=== PATIENT | female | born 1950 | race Caucasian/White ===

== ENCOUNTER 2019-02-13 04:29 | Inpatient (IN) | payer OTHER, MEDICARE ==
[2019-02-13 05:14] LABS: Absolute Lymphocytes (CBC) 1.5 K/uL (0.7-4.9); Basophils % 0.1 % (0-1.3); Eosinophils % 0.1 % (0-4.4); Hematocrit 45.5 % (36.0-45.0); Lymphocytes % 11.7 % (15.3-44.8); MPV 9.2 fL (7.6-11.3); Monocytes % 1.6 % (3.3-12.3); RBC Red Blood Cell Count 4.68 M/uL (3.86-4.86)
[2019-02-13] MEDS ORDERED: NA CHLORIDE 0.9% 500 ML ONE (05:17)
[2019-02-13 05:31] LABS: Potassium 3.8 mmol/L (3.5-5.1)
--- NOTE | 2019-02-13 06:23 | ER ---
Nurse's Notes [facility] Name: Madison Skinner Age: 68 yrs Sex: Female : 1950 Arrival Date: 02/13/2019 Time: 04:31 Bed 17 Private MD: Ayala Booth C Diagnosis: Multiple fractures of ribs, left side;Pneumothorax, unspecified Presentation: 02/13 04:31 Presenting complaint: EMS states: Patient complaint of left rib pain, left arm pain, lp1 left facial pain after fall in backyard; No LOC; Patient states falling after drinking wine this evening about 2300 and was not able to get for help, laid outside for about 5 hours; Patient states vomiting upon movement to stretcher with EMS. Care prior to arrival: IV initiated. 22 GA, in the right antecubital area, Glucose check: 111. Mechanism of Injury: Fall from standing position. Trauma event details: Injury occurred in the [facility], Injury occurred: at home. Injury occurred: February 12, 2019 Injury occurred at: 23:00. 04:31 Acuity: ELTON 3 lp1 04:31 Method Of Arrival: EMS: [facility] lp1 04:43 Transition of care: patient was not received from another setting of care. Onset of lp1 symptoms was February 12, 2019 at 23:00. Risk Assessment: Do you want to hurt yourself or someone else? Patient reports no desire to harm self or others. Initial Sepsis Screen: Does the patient meet any 2 criteria? No. Patient's initial sepsis screen is negative. Does the patient have a suspected source of infection? No. Patient's initial sepsis screen is negative. Trauma Activation: Physician: ED Physician; Name: ; Notified At: ; Arrived At: Physician: General Surgeon; Name: ; Notified At: ; Arrived At: Physician: Radiology; Name: ; Notified At: ; Arrived At: Physician: Respiratory; Name: ; Notified At: ; Arrived At: Physician: Lab; Name: ; Notified At: ; Arrived At: 04:59 no activation overhead. ak1 Historical: - Allergies: 04:41 No Known Allergies; lp1 - Home Meds: 04:41 levothyroxine 75 mcg tab 1 tab once daily [Active]; ezetimibe oral oral once daily lp1 [Active]; rosuvastatin 20 mg oral tab 1 tab once daily [Active]; hydrochlorothiazide 12.5 mg Oral cap 1 cap once daily [Active]; duloxetine 30 mg oral cpDR 1 cap once daily [Active]; aspirin 81 mg Oral TbEC 1 tab once daily [Active]; - PMHx: 04:41 Hypertension; Hyperlipidemia; Hypothyroidism; lp1 - PSHx: 04:41 Left mastectomy; Appendectomy; Tonsillectomy; lp1 - Social history:: Smoking status: Patient uses tobacco products, smokes one-half pack cigarettes per day. - Immunization history: Last tetanus immunization: unknown. - Ebola Screening: : No symptoms or risks identified at this time. Screenin:42 Abuse screen: Denies threats or abuse. Denies injuries from another. Nutritional lp1 screening: No deficits noted. Tuberculosis screening: No symptoms or risk factors identified. 04:58 Fall Risk IV access (20 points). Gait- Weak (10 pts.). ak1 Primary Survey: 04:52 NO uncontrolled hemorrhage observed. Breathing/Chest: Respiratory pattern: regular, ak1 Respiratory effort: unlabored, shallow, Breath sounds: clear, bilaterally. Circulation: Cardiac rhythm: sinus bradycardia Skin temperature: warm, dry. Disability Alert. Exposure/Environment: All clothing and personal items were removed. Forensic evidence collection is not deemed to be indicated at this time. Items placed in patient belonging bag. There is no evidence of uncontrolled external bleeding. 04:58 Reassessment Breathing/Chest Respiratory pattern Regular Respiratory effort Spontaneous ak1 Unlabored Shallow Breath sounds Clear Circulation Heart rhythm Sinus blanka Color [place] Temperature Warm Dry Disability Alert. 07:00 Reassessment Airway Airway Patent Oxygen Other venturi mask 50% FiO2 Breathing/Chest hb Respiratory pattern Regular Respiratory effort Spontaneous Unlabored Breath sounds Clear Chest inspection Symmetrical Circulation Color [place] Temperature Warm Dry Disability Alert. 08:00 Reassessment Airway Airway Patent Oxygen Other venturi mask 50% FiO2 Breathing/Chest hb Respiratory pattern Regular Respiratory effort Spontaneous Unlabored Breath sounds Clear Chest inspection Symmetrical Circulation Color [place] Temperature Warm Dry Disability Alert. 09:00 Reassessment Airway Airway Patent Oxygen Other VENTI MASK 50% Breathing/Chest hb Respiratory pattern Regular Respiratory effort Spontaneous Unlabored Circulation Color [place] Temperature Warm Dry Disability Alert. 10:00 Reassessment Airway Airway Patent Oxygen Nasal cannula Breathing/Chest Respiratory hb pattern Regular Respiratory effort Spontaneous Unlabored Breath sounds Clear Chest inspection Symmetrical Circulation Color [place] Temperature Warm Dry Disability Alert. Secondary Survey: 04:52 HEENT: Head No injury/deformity Face Other abrasion to left cheek Eyes: No injury or ak1 deformity noted. Ears: clear bilaterally. abrasion to left ear. Nose: clear Throat: is clear with gag reflex present. Gastrointestinal: Abdomen is soft, flat, non-distended, Bowel sounds present in all quadrants. Patient vomited prior to arrival. : No signs and/or symptoms were reported regarding the genitourinary system. Musculoskeletal: Range of motion: intact in all extremities. Injury Description: fall from standing per pt. Assessment: 04:48 General: Appears uncomfortable, slender, Behavior is calm, cooperative, appropriate for ak1 age. Pain: Complains of pain in left rib, left cheek. Neuro: Level of Consciousness is awake, alert, obeys commands, Oriented to person, place, time, situation, Color Expert are equal bilaterally Moves all extremities. Speech is normal, Facial symmetry appears normal. Cardiovascular: No deficits noted. Respiratory: Airway is patent Respiratory effort is even, unlabored, shallow, Breath sounds are clear bilaterally. pain to left rib area s/p fall Onset: The symptoms/episode began/occurred midnight. pt "had too much wine and fell on the patio" pt called her via cell phone from midnight thru 0400 when he woke and called 911. pt denies LOC from fall, pt denies pain to head or neck. . GI: Abdomen is flat, non-distended, Bowel sounds present X 4 quads. : No signs and/or symptoms were reported regarding the genitourinary system. EENT: redness, abrasion to left ear. redness, abrasion to left cheek. . Derm: Bruising that is dark purple, on dorsal aspect of right forearm. Musculoskeletal: No signs and/or symptoms reported regarding the musculoskeletal system. Injury Description: fall from standing per pt. 05:37 Reassessment: pt returned from CT. ak1 05:45 Reassessment: Patient appears in no apparent distress at this time. No changes from ak1 previously documented assessment. Patient and/or family updated on plan of care and expected duration. Pain level reassessed. Patient is alert, oriented x 3, equal unlabored respirations, skin warm/dry/pink. 06:21 Reassessment: Dr. Chinchilla at bedside to inform pt of admission status. RT paged to place ak1 pt on venti mask per ERP. 07:00 General: Appears in no apparent distress. Behavior is calm, cooperative. Pain: Pain hb currently is 8 out of 10 on a pain scale. Neuro: Level of Consciousness is awake, alert, obeys commands, Oriented to person, place, time, situation. EENT: No signs and/or symptoms were reported regarding the EENT system. Cardiovascular: Capillary refill < 3 seconds Patient's skin is warm and dry. Respiratory: Airway is patent Respiratory effort is even, unlabored, Respiratory pattern is regular, symmetrical, Breath sounds are clear bilaterally. GI: No signs and/or symptoms were reported involving the gastrointestinal system. : No signs and/or symptoms were reported regarding the genitourinary system. Derm: Skin is intact, is healthy with good turgor. Musculoskeletal: Reports left sided chest wall pain. 07:09 Reassessment: Surinder Vergara [phone]. hb 07:34 Reassessment: Dr. Casiano at bedside. hb 08:00 Reassessment: Patient appears in no apparent distress at this time. No changes from hb previously documented assessment. Patient and/or family updated on plan of care and expected duration. Pain level reassessed. Patient is alert, oriented x 3, equal unlabored respirations, skin warm/dry/pink. 08:10 Reassessment: Pt transported to CT via stretcher with tech. remains at bedside. hb 08:48 Reassessment: Pt returned from CT. NAD. remains at bedside. hb 09:00 Reassessment: Patient appears in no apparent distress at this time. Patient and/or hb family updated on plan of care and expected duration. Pain level reassessed. Patient is alert, oriented x 3, equal unlabored respirations, skin warm/dry/pink. 10:00 Reassessment: Patient appears in no apparent distress at this time. Patient and/or hb family updated on plan of care and expected duration. Pain level reassessed. Patient is alert, oriented x 3, equal unlabored respirations, skin warm/dry/pink. Vital Signs: 04:38 BP 116 / 59; Pulse 55; Resp 18; Temp 98.2(O); Pulse Ox 93% on R/A; Weight 50.35 kg; lp1 Height 5 ft. 0 in. (152.40 cm); Pain 9/10; 05:44 BP 137 / 59; Pulse 52; Resp 16; Pulse Ox 93% on R/A; ak1 07:00 BP 151 / 59; Pulse 53; Resp 19; Pulse Ox 97% on 50% Venturi mask; Pain 8/10; hb 08:00 BP 146 / 60; Pulse 61; Resp 18; Pulse Ox 96% on 50% Venturi mask; Pain 8/10; hb 09:00 BP 129 / 54; Pulse 63; Resp 17; Pulse Ox 100% on 50% Venturi mask; hb 10:00 BP 126 / 98; Pulse 54; Resp 15; Pulse Ox 100% on 2 lpm NC; Pain 5/10; hb 04:38 Body Mass Index 21.68 (50.35 kg, 152.40 cm) lp1 [place] Coma Score: 04:38 Eye Response: spontaneous(4). Verbal Response: oriented(5). Motor Response: obeys lp1 commands(6). Total: 15. 05:45 Eye Response: spontaneous(4). Verbal Response: oriented(5). Motor Response: obeys ak1 commands(6). Total: 15. Trauma Score (Adult): 04:38 Eye Response: spontaneous(1); Verbal Response: oriented(1); Motor Response: obeys lp1 commands(2); Systolic BP: > 89 mm Hg(4); Respiratory Rate: 10 to 29 per min(4); [place] Score: 15; Trauma Score: 12 05:45 Eye Response: spontaneous(1); Verbal Response: oriented(1); Motor Response: obeys ak1 commands(2); Systolic BP: > 89 mm Hg(4); Respiratory Rate: 10 to 29 per min(4); [place] Score: 15; Trauma Score: 12 07:00 Eye Response: spontaneous(1); Verbal Response: oriented(1); Motor Response: obeys hb commands(2); Systolic BP: > 89 mm Hg(4); Respiratory Rate: 10 to 29 per min(4); [place] Score: 15; Trauma Score: 12 08:00 Eye Response: spontaneous(1); Verbal Response: oriented(1); Motor Response: obeys hb commands(2); Systolic BP: > 89 mm Hg(4); Respiratory Rate: 10 to 29 per min(4); [place] Score: 15; Trauma Score: 12 09:00 Eye Response: spontaneous(1); Verbal Response: oriented(1); Motor Response: obeys hb commands(2); Systolic BP: > 89 mm Hg(4); Respiratory Rate: 10 to 29 per min(4); [place] Score: 15; Trauma Score: 12 10:00 Eye Response: spontaneous(1); Verbal Response: oriented(1); Motor Response: obeys hb commands(2); Systolic BP: > 89 mm Hg(4); Respiratory Rate: 10 to 29 per min(4); [place] Score: 15; Trauma Score: 12 ED Course: 04:31 Patient arrived in ED. ds1 04:35 Thermoregulation: warm blanket given to patient. lp1 04:35 Patient maintains SpO2 saturation greater than 95% on room air. lp1 04:37 Triage completed. lp1 04:42 Arm band placed on right wrist. lp1 04:46 Shar Chinchilla MD is Attending Physician. gs 04:47 Joanne Gorman, GORAN is Primary Nurse. ak1 04:52 Patient has correct armband on for positive identification. Placed in gown. Bed in low ak1 position. Call light in reach. Side rails up X2. Adult w/ patient. Patient maintains SpO2 saturation greater than 95% on room air. Family accompanied patient. Pulse ox on. NIBP on. 04:52 Maintain EMS IV. Dressing intact. Site clean \\T\\ dry. Gauge \\T\\ site: 22g right AC. ak 1 05:16 Ayala Booth MD is Private Physician. ds1 05:45 CT completed. Pt tolerated procedure poorly. Patient moved to CT via stretcher. Patient eh moved back from CT. 05:45 Door closed. Warm blanket given. Pillow given. Head of bed lowered. ak1 05:55 CT Chest Wo Con In Process Unspecified. EDMS 06:22 Kei Casiano MD is Hospitalizing Provider. gs 06:23 No provider procedures requiring assistance completed. ak1 07:25 Attending Physician role handed off by Shar Chinchilla MD kdr 07:25 Oren Gilmore MD is Attending Physician. kdr 07:27 Shar Chinchilla MD is Attending Physician. kdr 08:05 T\\T\\S collected, blood band applied to patient. pt, ethanol drawn by ms and sent to lab. 3 08:09 ETOH Level Sent. hb 08:09 Type And Screen Sent. hb 08:09 PT-INR Sent. hb 09:04 Attending Physician role handed off by Shar Chinchilla MD [facility] 09:04 Oren Gilmore MD is Attending Physician. [facility] 09:21 ABOrh no charge collected by me and sent to lab. 3 Administered Medications: 05:09 Drug: NS 0.9% 500 ml Route: IV; Rate: bolus; Site: right antecubital; ak1 06:00 Follow up: IV Status: Completed infusion; IV Intake: 500ml ak1 08:08 Drug: morphine 4 mg Route: IVP; Site: right antecubital; hb 08:09 Drug: Zofran 4 mg Route: IVP; Site: right antecubital; hb 10:44 CANCELLED (Duplicate Order): [place] 10 mg-325 mg 1 tabs PO once hb 10:49 Drug: [place] 10 mg-325 mg 1 tabs Route: PO; hb Intake: 04:52 PO: 0ml; Total: 0ml. ak1 06:00 IV: 500ml; Total: 500ml. ak1 Outcome: 06:23 Decision to Hospitalize by Provider. gs 11:48 Patient left the ED. hb Signatures: Dispatcher [employer] EDMS Oren Gilmore MD MD [facility] Delroy Agarwal Hyacinth Rowe 1 Amberly Alexander RN RN 1 Joanne Gorman RN RN ak1 Larisa Gibson RN RN Ana Plascencia [facility] Shar Chinchilla MD MD gs Corrections: (The following items were deleted from the chart) 04:44 04:42 Social history: Smoking status: Patient/guardian denies using tobacco, lp1 lp1 10:24 10:00 BP 126 / 98; Pulse 54bpm; Resp 15bpm; Pulse Ox 100% RA; Pain 5/10; hb hb
--- NOTE | 2019-02-13 06:23 | EDPHYS ---
Physician Documentation [facility] Name: Madison Skinner Age: 68 yrs Sex: Female : 1950 Arrival Date: 02/13/2019 Time: 04:31 Bed 17 Private MD: Ayala Booth C ED Physician Oren Gilmore HPI: 02/13 05:44 This 68 yrs old Female presents to ER via EMS with complaints of Fall Injury. gs 05:44 Details of fall: The patient fell from an upright position. Onset: The symptoms/episode gs began/occurred just prior to arrival, 6 hour(s) ago. Associated injuries: The patient sustained injury to the head, abrasion, left bicep. Severity of symptoms: At their worst the symptoms were moderate, in the emergency department the symptoms are unchanged. The patient has experienced similar episodes in the past, a few times. was intoxicated and couldn't get up off floor of porch. Historical: - Allergies: 04:41 No Known Allergies; lp1 - Home Meds: 04:41 levothyroxine 75 mcg tab 1 tab once daily [Active]; ezetimibe oral oral once daily lp1 [Active]; rosuvastatin 20 mg oral tab 1 tab once daily [Active]; hydrochlorothiazide 12.5 mg Oral cap 1 cap once daily [Active]; duloxetine 30 mg oral cpDR 1 cap once daily [Active]; aspirin 81 mg Oral TbEC 1 tab once daily [Active]; - PMHx: 04:41 Hypertension; Hyperlipidemia; Hypothyroidism; lp1 - PSHx: 04:41 Left mastectomy; Appendectomy; Tonsillectomy; lp1 - Social history:: Smoking status: Patient uses tobacco products, smokes one-half pack cigarettes per day. - Immunization history: Last tetanus immunization: unknown. - Ebola Screening: : No symptoms or risks identified at this time. ROS: 05:44 All other systems are negative. gs 16:16 Constitutional: neagtive except as noted kdr Exam: 05:44 Eyes: Pupils equal round and reactive to light, extra-ocular motions intact. Lids and gs lashes normal. Conjunctiva and sclera are non-icteric and not injected. Cornea within normal limits. Periorbital areas with no swelling, redness, or edema. ENT: Nares patent. No nasal discharge, no septal abnormalities noted. Tympanic membranes are normal and external auditory canals are clear. Oropharynx with no redness, swelling, or masses, exudates, or evidence of obstruction, uvula midline. Mucous membranes moist. Neck: Trachea midline, no thyromegaly or masses palpated, and no cervical lymphadenopathy. Supple, full range of motion without nuchal rigidity, or vertebral point tenderness. No Meningismus. Chest/axilla: Normal chest wall appearance and motion. Nontender with no deformity. No lesions are appreciated. Cardiovascular: Regular rate and rhythm with a normal S1 and S2. No gallops, murmurs, or rubs. Normal PMI, no JVD. No pulse deficits. Respiratory: Lungs have equal breath sounds bilaterally, clear to auscultation and percussion. No rales, rhonchi or wheezes noted. No increased work of breathing, no retractions or nasal flaring. Abdomen/GI: Soft, non-tender, with normal bowel sounds. No distension or tympany. No guarding or rebound. No evidence of tenderness throughout. Back: No spinal tenderness. No costovertebral tenderness. Full range of motion. Skin: Warm, dry with normal turgor. Normal color with no rashes, no lesions, and no evidence of cellulitis. MS/ Extremity: Pulses equal, no cyanosis. Neurovascular intact. Full, normal range of motion. Neuro: Awake and alert, GCS 15, oriented to person, place, time, and situation. Cranial nerves II-XII grossly intact. Motor strength 5/5 in all extremities. Sensory grossly intact. Cerebellar exam normal. Normal gait. 05:44 Constitutional: The patient appears alert, awake. 05:44 Head/face: Noted is abrasion(s), that are mild, of the left christian and left zygomatic area. Vital Signs: 04:38 BP 116 / 59; Pulse 55; Resp 18; Temp 98.2(O); Pulse Ox 93% on R/A; Weight 50.35 kg; lp1 Height 5 ft. 0 in. (152.40 cm); Pain 9/10; 05:44 BP 137 / 59; Pulse 52; Resp 16; Pulse Ox 93% on R/A; ak1 07:00 BP 151 / 59; Pulse 53; Resp 19; Pulse Ox 97% on 50% Venturi mask; Pain 8/10; hb 08:00 BP 146 / 60; Pulse 61; Resp 18; Pulse Ox 96% on 50% Venturi mask; Pain 8/10; hb 09:00 BP 129 / 54; Pulse 63; Resp 17; Pulse Ox 100% on 50% Venturi mask; hb 10:00 BP 126 / 98; Pulse 54; Resp 15; Pulse Ox 100% on 2 lpm NC; Pain 5/10; hb 04:38 Body Mass Index 21.68 (50.35 kg, 152.40 cm) lp1 [place] Coma Score: 04:38 Eye Response: spontaneous(4). Verbal Response: oriented(5). Motor Response: obeys lp1 commands(6). Total: 15. 05:45 Eye Response: spontaneous(4). Verbal Response: oriented(5). Motor Response: obeys ak1 commands(6). Total: 15. Trauma Score (Adult): 04:38 Eye Response: spontaneous(1); Verbal Response: oriented(1); Motor Response: obeys lp1 commands(2); Systolic BP: > 89 mm Hg(4); Respiratory Rate: 10 to 29 per min(4); [place] Score: 15; Trauma Score: 12 05:45 Eye Response: spontaneous(1); Verbal Response: oriented(1); Motor Response: obeys ak1 commands(2); Systolic BP: > 89 mm Hg(4); Respiratory Rate: 10 to 29 per min(4); [place] Score: 15; Trauma Score: 12 07:00 Eye Response: spontaneous(1); Verbal Response: oriented(1); Motor Response: obeys hb commands(2); Systolic BP: > 89 mm Hg(4); Respiratory Rate: 10 to 29 per min(4); [place] Score: 15; Trauma Score: 12 08:00 Eye Response: spontaneous(1); Verbal Response: oriented(1); Motor Response: obeys hb commands(2); Systolic BP: > 89 mm Hg(4); Respiratory Rate: 10 to 29 per min(4); [place] Score: 15; Trauma Score: 12 09:00 Eye Response: spontaneous(1); Verbal Response: oriented(1); Motor Response: obeys hb commands(2); Systolic BP: > 89 mm Hg(4); Respiratory Rate: 10 to 29 per min(4); [place] Score: 15; Trauma Score: 12 10:00 Eye Response: spontaneous(1); Verbal Response: oriented(1); Motor Response: obeys hb commands(2); Systolic BP: > 89 mm Hg(4); Respiratory Rate: 10 to 29 per min(4); [place] Score: 15; Trauma Score: 12 MDM: 04:51 Patient medically screened. 06:21 Differential diagnosis: closed head injury, fracture, multiple trauma, sprain. Data gs reviewed: vital signs, nurses notes, lab test result(s), radiologic studies. Counseling: I had a detailed discussion with the patient and/or guardian regarding: the historical points, exam findings, and any diagnostic results supporting the discharge/admit diagnosis, lab results, radiology results, the need for outpatient follow up. Response to treatment: the patient's symptoms have mildly improved after treatment, and as a result, I will admit patient. Physician consultation: Kei Casiano MD and will see patient in unit. 09:27 ED course: Reviewed the CT results with Dr. Casiano, will admit to ICU. The patient is kdr stable. 02/13 04:57 Order name: CBC with Diff 02/13 04:57 Order name: Basic Metabolic Panel; Complete Time: 06:16 02/13 04:57 Order name: CPK; Complete Time: 06:16 02/13 05:00 Order name: CBC with Automated Diff; Complete Time: 07:47 EDTN 02/13 06:40 Order name: Manual Differential; Complete Time: 07:47 EDTN 02/13 07:52 Order name: ETOH Level [facility] 02/13 04:57 Order name: CT Chest Wo Con 02/13 07:52 Order name: CT Head C Spine [facility] 02/13 07:53 Order name: Type And Screen [facility] 02/13 07:53 Order name: PT-INR [facility] 02/13 08:28 Order name: Protime (+INR); Complete Time: 09:05 EDTN 02/13 09:09 Order name: Alcohol Serum/Plasma EDTN 02/13 09:14 Order name: Type and Screen [facility] 02/13 11:05 Order name: ABO/RH no charge [facility] 02/13 06:50 Order name: Consistent Carb (ADA) [address] EDTN 02/13 06:51 Order name: Respiratory Therapy Consult [facility] 02/13 07:52 Order name: CT Abd/Pelvis - Without Contrast kdr 02/13 08:41 Order name: CT; Complete Time: 09:05 EDMS 02/13 08:47 Order name: CT; Complete Time: 09:05 EDTN Administered Medications: 05:09 Drug: NS 0.9% 500 ml Route: IV; Rate: bolus; Site: right antecubital; ak1 06:00 Follow up: IV Status: Completed infusion; IV Intake: 500ml ak1 08:08 Drug: morphine 4 mg Route: IVP; Site: right antecubital; hb 08:09 Drug: Zofran 4 mg Route: IVP; Site: right antecubital; hb 10:44 CANCELLED (Duplicate Order): [place] 10 mg-325 mg 1 tabs PO once hb 10:49 Drug: [place] 10 mg-325 mg 1 tabs Route: PO; hb Disposition: 02/13/19 06:23 Hospitalization ordered by Kei Casiano for Inpatient Admission. Preliminary diagnosis are Multiple fractures of ribs, left side, Pneumothorax, unspecified. - Bed requested for Intensive Care Unit. - Status is Inpatient Admission. hb - Condition is Stable. - Problem is new. - Symptoms have improved. UTI on Admission? No Signatures: Dispatcher [employer] EDTN Oren Gilmore MD MD kdr [place], Maria ms Amberly Alexander, RN RN lp1 Joanne Gorman, GORAN RN ak1 Larisa Gibson, GORAN RN Shar Chinchilla MD MD gs Corrections: (The following items were deleted from the chart) 04:44 04:42 Social history: Smoking status: Patient/guardian denies using tobacco, lp1 lp1 09:58 06:23 Hospitalization Ordered by Kei Casiano MD for Inpatient Admission. Preliminary ms diagnosis is Multiple fractures of ribs, left side; Pneumothorax, unspecified. Bed requested for Telemetry/MedSurg (Inpatient). Status is Inpatient Admission. Condition is Stable. Problem is new. Symptoms have improved. UTI on Admission? No. gs 10:44 10:43 [place] 10 mg-325 mg 1 tabs PO once ordered. hb hb 11:48 09:58 02/13/2019 06:23 Hospitalization Ordered by Kei Casiano MD for Inpatient hb Admission. Preliminary diagnosis is Multiple fractures of ribs, left side; Pneumothorax, unspecified. Bed requested for Intensive Care Unit. Status is Inpatient Admission. Condition is Stable. Problem is new. Symptoms have improved. UTI on Admission? No. ms
[2019-02-13 06:39] LABS: Blood Morphology Comment NOT SEEN (NOT SEEN); Platelet Estimate ADEQ
[2019-02-13] MEDS: NA CHLORIDE 0.9% 1,000 ML IV SCH ×3 (07:00→17:00)
[2019-02-13 08:21] LABS: Protime INR 0.91
[2019-02-13] MEDS ORDERED: ONDANSETRON 4 MG/2 ML VIAL ONE (08:21)
[2019-02-13] MEDS ORDERED: MORPHINE 4 MG/ML SYR ONE (08:21)
--- NOTE | 2019-02-13 08:39 | RAD REPORT ---
EXAM DESCRIPTION: CT - CTHCSPWOC - 02/13/2019 8:16 am CLINICAL HISTORY: Trauma, head and neck injury. PAIN COMPARISON: CT HEAD CSPINE MPR WO CONTRAST dated 03/13/2013 TECHNIQUE: Axial 5 mm thick images of the head were obtained. Axial 2 mm thick images of the cervical spine were obtained with sagittal and coronal reconstruction images generated and reviewed. All CT scans are performed using dose optimization technique as appropriate and may include automated exposure control or mA/KV adjustment according to patient size. FINDINGS: CT HEAD WITHOUT CONTRAST: No acute hemorrhage, hydrocephalus or extra-axial collection is identified.Mild generalized brain atr ophy is present with mild periventricular and deep white matter chronic microvascular ischemic change s.No areas of brain edema or midline shift. Chronic sphenoid sinusitis is seen on the right. The paranasal sinuses and mastoids are otherwise sydni ar.The calvarium is intact. CT CERVICAL SPINE WITHOUT CONTRAST: No fracture or subluxation.Multilevel degenerative changes are present in the upper and mid cervical spine.No prevertebral soft tissues swelling is identified. IMPRESSION: No acute intracranial or cervical spine findings.
--- NOTE | 2019-02-13 08:44 | RAD REPORT ---
EXAM DESCRIPTION: CT - Abdomen Pelvis Wo Contrast - 02/13/2019 8:17 am CLINICAL HISTORY: Abdominal pain. Fall in backyard COMPARISON: Thorax Wo Con dated 02/13/2019 TECHNIQUE: CT imaging of the abdomen and pelvis was performed without contrast. Solid organ, bowel a nd vascular assessment is limited due to lack of IV and oral contrast. All CT scans are performed using dose optimization technique as appropriate and may include automated exposure control or mA/KV adjustment according to patient size. FINDINGS: Left-sided rib fractures are only partially included on this examination. Please reference same day dedicated CT chest for further details.The lung bases are emphysematous with small bilatera l pleural effusions. The liver, spleen, pancreas, adrenal glands and kidneys are within normal limits for a limited non-co ntrast examination.Aortic atherosclerosis. No bowel obstruction, free air, free fluid or abscess. The appendix is normal. No spinal fracture or pelvic fracture. IMPRESSION: No acute intra-abdominal or pelvic findings. Left-sided inferior rib fractures are partially imaged, please reference recent same-day CT chest for further details. A limited non-contrast examination was performed as detailed.
[2019-02-13] MEDS: ALBUTEROL 2.5 MG/3 ML NEB SOL NEB SCH ×3 (09:30→20:00)
[2019-02-13] MEDS: IPRATROPIUM BROM 0.5MG/2.5ML NEB SCH ×4 (09:30→20:00)
[2019-02-13] MEDS ORDERED: ALBUTEROL 2.5 MG/3 ML NEB SOL ONE (09:32)
[2019-02-13] MEDS ORDERED: IPRATROPIUM BROM 0.5MG/2.5ML ONE (09:33)
--- NOTE | 2019-02-13 09:56 | RAD REPORT ---
EXAM DESCRIPTION: Thorax Wo Con ADDENDUM #1 THIS REPORT CONTAINS FINDINGS THAT MAY BE CRITICAL TO PATIENT CARE: The findings were verbally discussed via telephone conference with Dr. Shar Chinchilla by Dr. Turner Flores on 6:16 AM CDT .The results were acknowledged and understood. Electronically signed by: Edith Flores MD 02/13/2019 6:17 AM CDT End of Addendum EXAM DESCRIPTION: CT Chest Without Intravenous Contrast CLINICAL HISTORY: The patient is 68 years old and is Female; PAIN TECHNIQUE: Axial computed tomography images of the chest without intravenous contrast. Sagittal an d coronal reformatted images were created and reviewed. This CT exam was performed using one or mor e of the following dose reduction techniques: automated exposure control, adjustment of the mA and/ or kV according to patient size, and/or use of iterative reconstruction technique. COMPARISON: No relevant prior studies available. FINDINGS: LUNGS: Biapical pleural scarring is present. Minimal dependent densities in the lung b ases are present. The lungs are hyperinflated with mild bilateral centrilobular emphysematous kowalski es. Minimal density within the lingula is also noted. PLEURAL SPACE: Trace left anterior inferior pneumothorax. No significant effusion. HEART: No cardiomegaly. No pericardial effusion. MEDIASTINUM: Unremarkable. BONES/JOINTS: There are degenerative changes of the spine. Fracture left anterior third through eighth ribs are noted. SOFT TISSUES: Bilateral breast implants are present. VASCULATURE: Unremarkable. No thoracic aortic aneurysm. LYMPH NODES: Unremarkable. No enlarged lymph nodes. IMPRESSION: 1. Trace left anterior inferior pneumothorax is noted. Multiple left anterior rib fractu res, third through eighth. 2. Emphysematous changes of lungs with likely bibasilar and lingular atelectasis. Electronically signed by: Edith Flores MD 02/13/2019 6:13 AM CDT Due to temporary technical issues with the PACS/Fluency reporting system, reports are being signed by the in house radiologist as a courtesy to ensure prompt reporting. The interpreting radiologist is f ully responsible for the content of the report.
[2019-02-13] MEDS ORDERED: HYDROCODONE/APAP 10/325 TAB ONE (10:50)
[2019-02-13] MEDS: MORPHINE 4 MG/ML SYR IV PRN (13:03)
--- NOTE | 2019-02-13 14:34 | RAD REPORT ---
EXAM DESCRIPTION: RAD - Chest Single View - 02/13/2019 2:27 pm CLINICAL HISTORY: r/o pneumothorax Chest pain. COMPARISON: Chest Pa And Lat (2 Views) dated 06/27/2017; CHEST PA AND LAT 2 VIEW dated 05/25/2015; CH EST PA AND LAT 2 VIEW dated 11/21/2011; CHEST PA AND LAT 2 VIEW dated 07/22/2009; Thorax Wo Con dated 02/13/2019 FINDINGS: Portable technique limits examination quality. Emphysematous changes are present throughout the lungs. No measurable pneumothorax seen. The heart is mildly enlarged in size with aortic atherosclerosis noted. Several superolateral left rib fractures present. IMPRESSION: No measurable pneumothorax evident.
[2019-02-13] MEDS: ENOXAPARIN 40 MG/0.4 ML SQ SCH (15:50)
--- NOTE | 2019-02-13 15:53 | HP ---
Date of Admission: 02/13/2019 This is an H and P of a trauma patient. History Of Present Illness: This is the case of a 68-year-old patient, who comes to the ER by EMS a few hours ago after a fall. The patient was walking. She went outside her house last night. Before that, she took some sleeping pills. Then, after that she tripped and she fell. She stated that she stayed there outside for about 5 hours until she was finally able to contact the EMS to come to the ER. Workup was done. When the workup was finished, then a surgery was called because the patient hale s pneumothorax and rib fractures. I came to this patient and interviewed the patient. The patient b elieves she may have some LOC. There was no witness present, so we upgraded this patient to the [facility] workup and did a complete trauma workup before we moved this patient to the ER. She is awake and alert right now. Secondary survey just shows some soreness of the left rib region. The patient is o riented x3, and she remembers most of the incidence. She takes a sleeping pill almost every night, a nd she has not developed any problem with that before. Past Medical History: Includes hypertension, hyperlipidemia, and hypothyroidism. Past Surgical History: Include left mastectomy for breast cancer about 4 years ago. She states she has no chemo and no radiation. She just took a pill. She also had appendectomy and tonsillectomy. Social History: She drinks occasionally, and she smokes 2 packs of cigarettes per day. She was expl ained the importance of smoking cessation and help was offered. Family History: Noncontributory. Review of Systems: Ten points, otherwise unremarkable. Physical Examination: General: The patient is awake and alert. HEENT: Pupils are equal and reactive. EOM positive. No otorrhea. No rhinorrhea. Mandible midline . Tongue midline. Neck: No pinpoint tenderness. No step-off. No JVD. Chest: Heart S1, S2. The patient has tenderness over left chest region. No ecchymosis. No open wo unds. That corresponds to the findings of the CAT scan. Abdomen: Soft and depressible. No guarding or rebound. Pelvis: Stable. Rectal: Deferred. Extremities: Good capillary refill. Full range of motion x4. Neuro: Cranial nerves 2 through 12 grossly within normal limits. GCS 15. Back: No pinpoint tenderness. No step-off. Genitalia/Breast: Deferred. Laboratory Data: Blood work shows WBC count of 12.9, hemoglobin of 15.9, and platelets 250. INR is 0.91 and potassium 3.8. Chloride is 94. Creatinine is 0.79. Initially the CAT scan was done of the chest that shows trace left anterior inferior pneumothorax, multiple rib fracture from 3rd to 6 ribs , some emphysematous changes are present. CT of the abdomen and pelvis, head and C-spine that was re quested as possible trauma, from our consult. She has no acute intracranial or cervical findings. T he abdominal CT shows the rib fractures that were mentioned before. No intraabdominal or pelvic othe r findings. Assessment: This is a 68-year-old patient who fell, and she was taken some sleeping pills, and she s tated that she fell and she stayed there outside for about 5 hours. When she was seen then EMS was sera molina, brought to the ER, initially seen by the ER physician, who did a chest CT, found some rib frac tures. We were called for consultation, but when we noted the history, we requested the patient to h ave a trauma workup, since there was a possibility of loss of consciousness also. Once again, we wou ld like to know if she tripped or if she has some intracranial injuries that led to the fall. Also i n the area of the abdomen obviously we have the lower rib fractures on the left side, and would like to know her abdominal condition. C-spine was also done, and pelvis. We going to keep the patient fo r observation. I understand the ICU is not available at the moment of evaluation, so I gave the hosp ital certain amount of time to find the ICU bed. If not, I would prefer this patient then to be perera sferred to a trauma center with an ICU since we have to evaluate that pneumothorax. She has the opti on of the chest tube placement, obviously she preferred not to. If that is the case, then we like to follow this patient in a controlled setting, which is in the ICU setting. We do not want her just s itting in the ER overnight. The hospital is working in the next few minutes in trying to make that h appen as 1 of our conditions for admission to this institution. The patient is fully aware of that. The patient once again explained the importance of reviewing her sleeping pills with her primary doc tor, also smoking cessation, alcohol cessation. LUMA/ELI Voice ID: [id number]
[2019-02-13] MEDS: HYDROCODONE/APAP 10/325 TAB PO PRN ×2 (16:35→22:26)
[2019-02-13] MEDS ORDERED: IPRATROPIUM BROM 0.5MG/2.5ML NEB PRN (20:22)
[2019-02-13] MEDS ORDERED: HOME MED 1 EA UNK (Cyclosporine [Restasis] 1 DROP) EACH EYE SCH (21:00)
[2019-02-13] MEDS ORDERED: ESZOPICLONE 1 MG TAB PO SCH (23:00)
[2019-02-14] MEDS: ALBUTEROL 2.5 MG/3 ML NEB SOL NEB SCH ×4 (01:20→20:00)
[2019-02-14] MEDS: MORPHINE 4 MG/ML SYR IV PRN ×2 (01:29→10:21)
[2019-02-14] MEDS: HYDROCODONE/APAP 10/325 TAB PO PRN ×3 (06:34→22:17)
--- NOTE | 2019-02-14 08:04 | RAD REPORT ---
EXAM DESCRIPTION: RAD - Chest Single View - 02/14/2019 6:29 am CLINICAL HISTORY: Chest trauma, multiple left-sided rib fractures COMPARISON: Portable chest February 13, CT chest February 13 TECHNIQUE: AP portable chest image was obtained 0625 hours . FINDINGS: No pulmonary contusion or other acute lung parenchymal process have developed since prior imaging. Heart size is normal with no mediastinal abnormality seen. No identifiable pneumothorax. It is possible for an anterior pneumothorax to be occult on a portable examination. No new bone abnormal ity. No acute aortic findings suspected. IMPRESSION: No pneumothorax identified on portable imaging. No pulmonary contusion or new lung parenchymal process.
[2019-02-14 08:43] LABS: Absolute Lymphocytes (CBC) 1.7 K/uL (0.7-4.9); Basophils % 0.4 % (0-1.3); Hematocrit 44.7 % (36.0-45.0); Lymphocytes % 19.4 % (15.3-44.8); MPV 9.3 fL (7.6-11.3); Monocytes % 7.4 % (3.3-12.3); RBC Red Blood Cell Count 4.57 M/uL (3.86-4.86)
[2019-02-14 08:56] LABS: ALT/SGPT 21 U/L (12-78); AST/SGOT 16 U/L (15-37); Albumin 3.5 g/dL (3.4-5.0); Alkaline Phosphatase 59 U/L (45-117); BUN Blood Urea Nitrogen 10 mg/dL (7-18); Bicarbonate 29 mmol/L (21-32); Bilirubin Total 0.7 mg/dL (0.2-1.0); Glucose Level 91 mg/dL (74-106); Magnesium 2.4 mg/dL (1.8-2.4); Potassium 3.9 mmol/L (3.5-5.1); Protein, Total 6.7 g/dL (6.4-8.2); Sodium Level 137 mmol/L (136-145)
[2019-02-14] MEDS ORDERED: DULOXETINE 30 MG PO SCH (09:00)
[2019-02-14] MEDS: ENOXAPARIN 40 MG/0.4 ML SQ SCH (09:09)
[2019-02-14] MEDS: DOCUSATE NA 100 MG CAP PO SCH (09:09)
[2019-02-14] MEDS: ONDANSETRON 4 MG/2 ML VIAL IV PRN (10:19)
--- NOTE | 2019-02-14 18:48 | PN ---
Date of Progress Note: 02/14/2019 Diagnoses: Status post fall, trauma, multiple rib fracture, pneumothorax, and chest contusion. History: This is a case of a 68-year-old patient, who has come as a trauma yesterday after a fall thibodeaux staining multiple rib fractures on the left side with a small pneumothorax. We admitted the patient to the intensive care unit for close followup. We did x-rays yesterday, several, and then this morni ng too. We have been evaluating the patient every few hours with the physical evaluation. The patie nt is feeling great. No shortness of breath. No chest pain. The patient is tolerating diet. Review of Systems: Ten points, otherwise unremarkable. Physical Examination: General: The patient is awake and alert. HEENT: Pupils are equal and reactive, anicteric. Neck: Supple. No JVD. No pinpoint tenderness. Chest: Bilateral breath sounds. Tenderness over the left rib cage area as expected. Abdomen: Soft and depressible. No guarding or rebound. Pelvis: Stable. Extremities: Full range of motion. Good peripheral pulses. Neuro: GCS 15. Cranial nerves 2-12 grossly within normal limits. Laboratory Data: Blood work shows WBC count of 8.6 with hemoglobin of 15.4. INR 0.91, and chloride is 103, sodium is 137. Chest x-ray from this morning shows no pneumothorax identified. Impression: This is the case of a 68-year-old patient, status post trauma, right now in the ICU. Th e patient is feeling great. We going to start working with physical therapy and pain control. This case will be managed now by Dr. Booth, who is her primary doctor, who currently came here last night a nd evaluated the patient in followup, and he has been active in her care. She understands I will be out of town today, coming back next Monday. From the surgical standpoint, we do not expect any surgi bina intervention to be done. Dr. Booth will be taking over the case since. We going to try to help w ith physical therapy to make sure there is no issues with tripping or falling and also for pain contr ol. We encouraged her incentive spirometry. We also encouraged her smoking cessation. HM/MODL Voice ID: [id number] Report ID: [id number]
--- NOTE | 2019-02-14 20:45 | PN ---
Date of Progress Note: 02/14/2019 Subjective: The patient was seen this morning for followup. No new complaints or problems reported by patient. She was lying in bed in ICU. Her was with her at bedside. Objective: Vital Signs: Reviewed. HEENT: Examination unremarkable. Lungs: Clear to auscultation. No rhonchi or rales. Heart: Sounds normal. Abdomen: Soft. Bowel sounds normal. No guarding, rigidity, tenderness, or distention. Extremities: No leg edema. Laboratory Data: Labs reviewed. Impression: 1.Multiple rib fracture, left side. 2.Traumatic pneumothorax. 3.Hyponatremia, resolved. 4.Hypertension. 5.Hypothyroidism. Plan: We will go ahead and transfer the patient out of ICU to regular room. See copy of transfer or dru for details. Medically, she is stable for transfer. Physical Therapy to start ambulating her to day. We will continue current pain medications and hopefully we will plan to discharge her tomorrow if her condition is stable. Details were discussed with Dr. Casiano, who is leaving [facility] and has re quested me to take over her care for this admission. HENRY/MODL Voice ID: [id number] Report ID: [id number]
[2019-02-14] MEDS ORDERED: ESZOPICLONE 3 MG PO SCH (21:00)
--- NOTE | 2019-02-14 23:45 | CON ---
Date of Consultation: 02/13/2019 Reason For Consultation: Medical management. History Of Present Illness: This is a 68-year-old very pleasant female, sharron, who was at home in her back patio with her and they both were in the evening hours drinking wine and the patient reports that she had more than what she should in terms of amount of alcohol that she was drinking and this was around probably 11 p.m. to 11:30 p.m. or so that she had stepped out from her back door to get into the back patio and she probably tripped over something and fell down around that time. By that time, her was already in the bed sleeping. After she fell down, she was not able to get up and she had her cell phone with her, so she kept on calling her and unfortunately he was sleeping, so he did not hear that, but somehow around 3 o' clock in the morning or so her heard phone ringing and at that time he went out to check on her and found her on the floor on the back patio. She was complaining of tremendous amount of pain in her ribcage as a result of fall and injury. The patient was brought into the emergency room. After she was evaluated, she was diagnosed as having multiple rib fractures on the left side and small pneumothorax on the left side. She was admitted to intensive care unit under care of Dr. Casiano, general surgeon and I was consulted for medical management. The patient says that she realizes that she had more alcohol than what she should and another thing she also did was to take her sleeping pill probably about an hour to 2 hour before she fell down. She does not know why she did not think about calling 911. When I saw her in ICU, she was lying in bed. Her was with her at bedside and her pain was well controlled with pain medications. Medications: List reviewed. Review of Systems: Musculoskeletal: As mentioned above, significant for left-sided rib cage pain. All other systems reviewed and negative. Past Medical History: Significant for hypertension, hypothyroidism, hyperlipidemia, osteoporosis, breast cancer, insomnia, hemangioma of liver, anxiety, osteoarthritis. Past Surgical History: Left-sided mastectomy for breast cancer and also past surgical history significant for hysterectomy. Allergies: SHE IS LISTED ALLERGIC TO AMBIEN AND IT IS ACTUALLY NOT ALLERGY BUT SIDE EFFECT AND SAYS THAT AMBIEN CAUSED SLEEPWALKING TYPE OF PROBLEM. Social History: POSITIVE FOR SMOKING AND ALCOHOL USE. Family History: Not pertinent. Physical Examination: Vital Signs: When she came into emergency room, pulse rate 60, respiratory rate 15, blood pressure 120/60, oxygen saturation 92%. General: Awake, alert, oriented, not in distress. HEENT: Head atraumatic, normocephalic. Conjunctivae nonerythematous. Sclerae white. Mouth, no thrush or edema noted. Ears/Nose, no mass, lesion, discharge noted. Neck: Supple. No JVD, lymph nodes, bruit, thyromegaly noted. Lungs: Bilateral equal air entry. Not using accessory muscles for respiration and the patient has shallow respiration. Heart: Normal heart sounds, no murmur or gallop. Abdomen: Soft, bowel sounds normal. No guarding, rigidity, tenderness, mass, hepatosplenomegaly, distention, or bruit noted. Extremities: No leg edema. No calf tenderness. Skin: No rash, ulcer, cellulitis. Lymphatics: No lymph node enlargement in neck, supraclavicular, infraclavicular region. Neuro: No focal neurological deficit. Chest: Unremarkable. External Genitalia: Deferred. Rectal: Deferred. Diagnostic Studies: Sodium 128, chloride 94, bicarb 25, BUN 12, creatinine 0.79 , glucose 87. CPK 119. White count 12.9, hemoglobin 15.9, platelets 250. Alcohol level 78. CAT scan shows multiple rib fracture with small pneumothorax. Chest x-ray, no evidence of pneumothorax on chest x-ray. Impression: 1. Multiple left-sided rib fracture. 2. Traumatic pneumothorax, left side. 3. Hyponatremia. 4. Alcohol intoxication. 5. Hypertension. 6. Hypothyroidism. 7. Hyperlipidemia. 8. Left-sided breast cancer. 9. Osteoporosis. 10. Osteoarthritis, multiple sites. 11. Primary insomnia. Plan: The patient was seen this evening for this medical consultation. Her home medications will be continued per order. Pain medication will be provided for symptomatic treatment for this rib fracture pain. She is hemodynamically stable and we will repeat another chest x-ray tomorrow, blood work tomorrow. Hopefully, she will not need any chest tube placement. SCDs in place for DVT prophylaxis. Starting tomorrow, we will consult Physical Therapy to help ambulate the patient. I did discuss with the patient regarding importance of either completely avoiding alcohol or if she does drink, she should not consume more than 1 glass of wine a day and it should be no more than 3 to 4 ounce of wine in 24 hours. I will see her tomorrow for followup. HENRY/ELI Voice ID: [id number] Report ID: [id number]
[2019-02-15] MEDS: ALBUTEROL 2.5 MG/3 ML NEB SOL NEB SCH ×2 (02:10→07:39)
[2019-02-15] MEDS: ONDANSETRON 4 MG/2 ML VIAL IV PRN (02:38)
[2019-02-15] MEDS: MORPHINE 4 MG/ML SYR IV PRN ×2 (02:38→08:47)
[2019-02-15] MEDS: HYDROCODONE/APAP 10/325 TAB PO PRN (06:27)
[2019-02-15] MEDS ORDERED: LEVOTHYROXINE SODIUM 75 MCG PO SCH (06:30)
[2019-02-15] MEDS: DOCUSATE NA 100 MG CAP PO SCH (08:46)
--- NOTE | 2019-02-16 00:40 | DS ---
Date of Discharge: 02/15/2019 Disposition: Discharged to go home. Physical Examination: HEENT: Unremarkable. Lungs: Clear to auscultation. Heart: Sounds normal. Abdomen: Soft. Bowel sounds normal. No guarding, rigidity, tenderness, distention. Extremities: No leg. Laboratory Data: Upon admission on 02/13/2019, white count 12.9, hemoglobin 15.9, platelets 250. Ye sterday, white count 8.6, hemoglobin 15.4, platelets 230. Upon admission, sodium 128, potassium 3.8, chloride 94, bicarb 25, BUN 12, creatinine 0.79, glucose 87. Yesterday, sodium 137, potassium 3.9, chloride 103, bicarb 29, BUN 10, creatinine 0.62, glucose 91. Liver function tests unremarkable. Hospital Course: A 68-year-old female patient who was admitted to the hospital after she fell down a t home. Please see my consultation for more details. The patient came into emergency room and she w as diagnosed as having multiple left-sided rib fractures secondary to this fall and posttraumatic pne umothorax, which was small involving left side. Pneumothorax was small enough that it was not detect ed on a chest x-ray, but it was detected on a CAT scan. The patient did not require any surgical int ervention. She was admitted to ICU under care of Dr. Casiano, general surgeon, who was nurse transitional for the trauma and I was consulted for medical management. Pain medication was given. Oxygen nebulizer treatment and incentive spirometer were ordered for her. Physical Therapy was consulted. The patien t started to ambulate very well and yesterday she had some constipation. Stool softener was ordered, which she has not responded to it yet, but she says this is nothing new for her. She has tendency f or constipation at home and normally she takes Dulcolax at home, which works well for her and upon di edie today. She will go ahead and use her Dulcolax after she goes home. Her pain is well control led with pain medication. Repeat chest x-ray yesterday has not shown any evidence of pneumothorax. She is tolerating diet very well, ambulating well. No other problem, complaints reported and she moriah l be discharged to go home in stable condition today. I did explain it to the patient and her husban d about trying to immobilize her rib cage by applying tape directly over the area of pain and surroun ding area, but not to encircle the entire chest. She will use Tylenol 500 mg 4 times a day as needed for mild pain and Tylenol with Codeine 1 tablet 4 times a day as needed for more intense pain and pr escription was sent to her pharmacy for 30 tablets with 1 refill. I will see her at office next week on and day before that appointment, she will get a chest x-ray done. The patient will cont inue all her other prior home medication except was advised not to take any aspirin, Aleve, Motrin ty pe of medication for 1 week. Final Diagnoses: 1.Multiple left-sided rib fracture. 2.Post traumatic pneumothorax, left side. 3.Hyponatremia, resolved. 4.Alcohol intoxication, resolved. 5.Hypertension. 6.Hypothyroidism. 7.Hyperlipidemia. 8.Left-sided breast cancer. 9.Osteoporosis. 10.Osteoarthritis, multiple sites. 11.Primary insomnia. 12.Leukocytosis, reactive. 13.Constipation, chronic. HENRY/MODL Voice ID: [id number] Report ID: [id number]
== END 2019-02-15 09:09 | disposition home or self-care (01) | DRG 200 ==
LOC: ER 04:29 → ERHOLD 07:04 → 3RD-ICU 11:04 → 4TH 02-14 10:11
PROVIDERS: ADMIT Surgery; ATTEND Internal Medicine
DX: S27.0XXA Traumatic pneumothorax, initial encounter (principal); S22.42XA Multiple fractures of ribs, left side, initial encounter for closed fracture; E87.1 Hypo-osmolality and hyponatremia; W01.0XXA Fall on same level from slipping, tripping and stumbling without subsequent striking against object, initial encounter; Y93.9 Activity, unspecified; Y92.017 Garden or yard in single-family (private) house as the place of occurrence of the external cause; I10 Essential (primary) hypertension; F17.210 Nicotine dependence, cigarettes, uncomplicated; E78.5 Hyperlipidemia, unspecified; E03.9 Hypothyroidism, unspecified; F10.129 Alcohol abuse with intoxication, unspecified; Y90.3 Blood alcohol level of 60-79 mg/100 ml; K59.09 Other constipation; D72.829 Elevated white blood cell count, unspecified; M81.0 Age-related osteoporosis without current pathological fracture; M15.9 Polyosteoarthritis, unspecified; Z85.3 Personal history of malignant neoplasm of breast; Z90.12 Acquired absence of left breast and nipple
CPT/HCPCS: 36415; 70450; 71045; 71250; 72125; 74176; 80048; 80053; 80320; 82550; 83735; 85025; 85610; 86850; 86900; 86901; 94640; 96361; 96374; 96375; 97116; 97163; 97530; 99285; J1650; J2405; J7030

== ENCOUNTER → 2020-07-22 | Day surgery (SDC) | payer OTHER, MEDICARE ==
--- NOTE | 2020-07-22 13:19 | RAD REPORT ---
EXAM DESCRIPTION: US - Biopsy Lymph Node - 07/22/2020 11:54 am CLINICAL HISTORY: ICD R 22.1 FINDINGS: Patient has a palpable mass in the region the right submandibular gland. Ultrasound demons trates a 3.7 centimeter oval mass. It contains hypo echoic areas as well as isoechoic structures. It does contain vascularity. Risks, benefits alternatives of procedure explained to the patient informed consent obtained. Skin and subcutaneous tissues were anesthetized with Lidocaine. Under sonographic guidance a 17 gauge needle was placed into the mass. An 18 gauge needle was then advanced through this and four 1 centim eter core specimens obtained. Subsequently a syringe was placed on the needle and approximately 5 cc of reddish-brown fluid removed . All of the material was given to pathology. The patient experienced immediate complication IMPRESSION: Core biopsies of a 3.7 centimeter neck mass
--- NOTE | 2020-07-22 14:08 | RAD REPORT ---
EXAM DESCRIPTION: RAD - Chest Pa And Lat (2 Views) - 07/22/2020 1:46 pm CLINICAL HISTORY: M15.0, R22.1, C50.912 COMPARISON: Two view chest January 2019 TECHNIQUE: Frontal and lateral views of the chest were obtained. FINDINGS: The lungs are fibrotic as a baseline. No acute failure, infiltrate or mass. No hilar mass or lymphadenopathy. Surgical clips overlie the left chest. Eggshell calcifications overlie the lower right chest. These findings are all stable. Heart size is normal and central vasculature is within normal limits. No pleural effusion or pneu mothorax seen. No acute bony finding noted. No aortic abnormality. IMPRESSION: No acute cardiopulmonary process. No significant change from comparison study.
--- NOTE | 2020-07-22 14:19 | RAD REPORT ---
EXAM DESCRIPTION: RAD - Thoracic Spine Ap/Lat - 07/22/2020 1:45 pm CLINICAL HISTORY: M15.0, R22.1, C50.912 COMPARISON: Thoracic Spine Ap/Lat dated 06/27/2017 FINDINGS: AP & lateral views of the thoracic spine were obtained. Underlying osteopenic changes are present. Disc space narrowing is present at multiple levels similar to 2017. Endplate spurring pattern is not significantly different from comparison. No lytic, sclerot ic or expansile bony destructive process. There is no paraspinal soft tissue mass. The T10 body showe d a prior partial wedge compression deformity. This has progressed slightly from 2017. Slight wedging in the T6 vertebral body also seen as stable. IMPRESSION: Osteopenic and degenerative thoracic spine changes are present. A partial T10 compression fracture seen in 2017 has shown a slight further progression. This does no t appear pathologic. The posterior wall of T10 remains normal in height.
--- NOTE | 2020-07-22 14:35 | RAD REPORT ---
EXAM DESCRIPTION: RAD - C Spine Ap/Lat - 07/22/2020 1:51 pm CLINICAL HISTORY: M15.0, R22.1, C50.912 COMPARISON: No comparisons FINDINGS: Cervical bodies are normal in height and alignment. No fracture or acute bony process seen . Minimal disc space narrowing at C5-6. Mild posterior endplate spurring changes are seen spanning C3 -C7. Moderate severity facet degenerative change through this same range as well. Bones are osteopeni c. There is no prevertebral soft tissue thickening or other suspicious soft tissue finding. Dense carotid bulb calcifications are present. IMPRESSION: Osteopenic and degenerative changes are present with no acute or destructive finding. Degenerative changes most pronounced in the facet joints spanning C3-C7.
--- NOTE | 2020-07-22 14:37 | RAD REPORT ---
EXAM DESCRIPTION: RAD - Lumbar Spine 3 Views - 07/22/2020 2:02 pm CLINICAL HISTORY: M15.0, R22.1, C50.912 COMPARISON: Lumbar Spine 3 Views dated 06/27/2017 FINDINGS: A three-view lumbar spine examination was performed. Lumbar bodies are normal in height and alignment. No fracture or acute bony process seen. No disc spa ce narrowing. Mild endplate spurring changes are present. Mild to moderate facet degenerative change present at L4-5 with moderate severity L5-S1 facet degenerative change. No pars defects identified. No suspicious soft tissue findings. Patient has dense nonaneurysmal aortoiliac atherosclerotic calcif ications. IMPRESSION: Lumbar spine degenerative changes are present detailed with no acute or destructive find ing. No significant change from comparison.
== END ==
LOC: FNA 10:40
PROVIDERS: ATTEND Internal Medicine
DX: R22.1 Localized swelling, mass and lump, neck (principal); M15.0 Primary generalized (osteo)arthritis; C50.912 Malignant neoplasm of unspecified site of left female breast; I10 Essential (primary) hypertension; M47.892 Other spondylosis, cervical region; M47.894 Other spondylosis, thoracic region
CPT/HCPCS: 38505; 71046; 72040; 72070; 72100; 76942; 88162